=== PATIENT | male | born 1945 | race Caucasian/White ===

== ENCOUNTER 2018-04-20 07:17 | Day surgery (SDC) ==
[2018-04-20] MEDS: BETADINE OPTH PREP OP PRN ×2 (07:30→09:06)
[2018-04-20] MEDS: TETRACAINE 0.5% UNIT-DOSE OP PRN ×2 (07:30→09:06)
[2018-04-20] MEDS: CYCLOGYL 2% OPTH OP PRN ×3 (07:31→07:41)
[2018-04-20] MEDS ORDERED: BSS WITH EPINEPHRINE OP ONE (07:41)
[2018-04-20] MEDS ORDERED: LIDOCAINE 1%/PHENYLEPHRINE 1.5% BSS (SURGERY) INTRAOCULA ONE (07:41)
[2018-04-20] MEDS ORDERED: LIDOCAINE 1% 20 ML MDV ID STA (07:41)
[2018-04-20] MEDS ORDERED: BRIMONIDINE TARTRATE 0.2% OPTH SOL OP PRN (07:41)
[2018-04-20] MEDS ORDERED: ZOFRAN 4 MG/2 ML IVP ONE (07:41)
[2018-04-20] MEDS ORDERED: DEX-MOXI-KETOR OPTH INJ 1/0.5/0.4 MG/ML IO ONE (07:41)
[2018-04-20] MEDS ORDERED: VERSED ONE (09:26)
[2018-04-20] MEDS ORDERED: ZOFRAN 4 MG/2 ML ONE (09:26)
[2018-04-20] MEDS ORDERED: SUBLIMAZE ONE (09:26)
[2018-04-20 12:34] VITALS: TEMP 98.4
[2018-04-20 12:54] VITALS: BP 123/47
== END 2018-04-20 10:25 | disposition home or self-care (01) ==
LOC: SURG 07:17
PROVIDERS: ATTEND Ophthalmology
DX: H25.812 Combined forms of age-related cataract, left eye (principal)

== ENCOUNTER 2018-05-05 07:02 | Day surgery (SDC) ==
[2018-05-05] MEDS: BETADINE OPTH PREP OP PRN ×2 (07:20→08:10)
[2018-05-05] MEDS: TETRACAINE 0.5% UNIT-DOSE OP PRN ×2 (07:20→08:10)
[2018-05-05] MEDS: CYCLOGYL 2% OPTH OP PRN ×3 (07:21→07:34)
[2018-05-05] MEDS ORDERED: BSS WITH EPINEPHRINE OP ONE (07:24)
[2018-05-05] MEDS ORDERED: ZOFRAN 4 MG/2 ML IVP ONE (07:24)
[2018-05-05] MEDS ORDERED: BRIMONIDINE TARTRATE 0.2% OPTH SOL OP PRN (07:24)
[2018-05-05] MEDS ORDERED: DEX-MOXI-KETOR OPTH INJ 1/0.5/0.4 MG/ML IO ONE (07:24)
[2018-05-05] MEDS ORDERED: LIDOCAINE 1%/PHENYLEPHRINE 1.5% BSS (SURGERY) INTRAOCULA ONE (07:24)
[2018-05-05] MEDS ORDERED: LIDOCAINE 1% 20 ML MDV ID STA (07:24)
[2018-05-05 07:27] VITALS: TEMP 98.4
[2018-05-05] MEDS ORDERED: SUBLIMAZE ONE (08:23)
[2018-05-05] MEDS ORDERED: ZOFRAN 4 MG/2 ML ONE (08:23)
[2018-05-05] MEDS ORDERED: VERSED ONE (08:23)
[2018-05-07 08:19] VITALS: BP 117/56
== END 2018-05-05 09:20 | disposition home or self-care (01) ==
LOC: SURG 07:02
PROVIDERS: ATTEND Ophthalmology
DX: H25.811 Combined forms of age-related cataract, right eye (principal)